=== PATIENT | female | born 2000 | race Hispanic/Latino ===

== ENCOUNTER 2021-01-31 11:14 | Emergency (ER) | payer OTHER ==
[~2021-01-31] VITALS: Ht 165.1 cm; Wt 71.5 kg
[2021-01-31 12:28] LABS: BASO # 0.1 10^3/uL (0.0-0.2); BASO % 1.1 % (0.0-1.0); EOS # 0.3 10^3/uL (0.0-0.5); EOS % 3.9 % (0.0-3.0); HEMATOCRIT 42.9 % (36.0-47.0); HEMOGLOBIN 13.8 g/dl (12.0-15.5); LYMPH % 30.4 % (24.0-44.0); MEAN CORPUSCULAR HEMOGLOBIN 29.4 pg (27.0-33.0); MEAN CORPUSCULAR HGB CONC 32.2 g/dl (32.0-36.5); MEAN CORPUSCULAR VOLUME 91.5 fl (80.0-96.0); MONO # 0.7 10^3/uL (0.0-0.8); MONO % 9.8 % (2.0-8.0); NEUTROPHILS # 3.6 10^3/uL (1.5-8.5); NEUTROPHILS % 54.6 % (36.0-66.0); PLATELET COUNT, AUTOMATED 284 10^3/uL (150-450); RED BLOOD COUNT 4.69 10^6/uL (4.00-5.40); WHITE BLOOD COUNT 6.6 10^3/uL (4.0-10.0)
[2021-01-31 12:53] LABS: HCG, SERUM QUANTITATIVE 124 MIU/ML
[2021-01-31 16:14] LABS: BLOOD UREA NITROGEN 6 MG/DL (7-18); CALCIUM LEVEL 9.6 MG/DL (8.5-10.1); CARBON DIOXIDE LEVEL 24 MEQ/L (21-32); CHLORIDE LEVEL 109 MEQ/L (98-107); CREATININE FOR GFR 0.67 MG/DL (0.55-1.30); GLUCOSE, FASTING 86 MG/DL (70-100); POTASSIUM SERUM 4.5 MEQ/L (3.5-5.1); SODIUM LEVEL 143 MEQ/L (136-145)
--- NOTE | 2021-01-31 17:30 | REP ---
INDICATION: vag bleeding, pelvic pain, positive hcg. COMPARISON: None. TECHNIQUE: Transabdominal and transvaginal scanning or performed. FINDINGS: Transabdominal and transvaginal scanning demonstrates a normal-sized empty uterus with dimensions of 7.4 x 3.4 x 4.1 cm. Endometrial echo is 0.4 cm thick. No gestational sac or products of conception are identified. No free fluid in the cul-de-sac. Normal ovaries are observed. Right ovarian dimensions are 2.5 x 1.4 x 1.8 cm. Left ovary measures 3.3 x 1.5 x 1.5 cm. Doppler flow is present in both ovaries with resistive indices measured at 0.53 on the right and 0.58 on the left. IMPRESSION: No morphologic abnormality. No intrauterine gestational sac or products of conception seen. No free fluid or adnexal mass. Clinical and possibly sonographic follow-up is advised. Nonspecific sonographic findings in the face of a positive hCG. <Electronically signed by Isak Terrell > 01/31/21 [id number]
[2021-01-31 18:07] VITALS: BP 121/63
== END 2021-01-31 18:46 | disposition home or self-care (01) ==
LOC: M ED 11:14
DX: Z32.01 Encounter for pregnancy test, result positive (principal); O20.0 Threatened abortion; O26.891 Other specified pregnancy related conditions, first trimester; O20.8 Other hemorrhage in early pregnancy

== ENCOUNTER → 2021-02-02 | Outpatient (CLI) | payer OTHER | LOC: M LAB 12:20 | PROVIDERS: ATTEND Physician Assistant | DX: O20.0 Threatened abortion (principal) ==

== ENCOUNTER 2021-08-14 15:31 | Emergency (ER) | payer OTHER ==
[~2021-08-14] VITALS: Ht 165.1 cm; Wt 70.5 kg
[2021-08-15 00:27] VITALS: BP 119/65
== END 2021-08-15 00:34 | disposition home or self-care (01) ==
LOC: M ED 15:31
DX: S80.01XA Contusion of right knee, initial encounter (principal); S80.02XA Contusion of left knee, initial encounter; R10.30 Lower abdominal pain, unspecified; V43.62XA Car passenger injured in collision with other type car in traffic accident, initial encounter; Y92.9 Unspecified place or not applicable; Y93.9 Activity, unspecified; Y99.9 Unspecified external cause status
CPT/HCPCS: 73564; 74177; 80048; 84703; 85025; 96374; 99284; J1885; Q9967